=== PATIENT | male | born 1940 | race Caucasian/White ===

== ENCOUNTER 2016-12-18 15:25 | Emergency (ER) | payer MEDICARE, OTHER ==
[~2016-12-18 15:25] MED LIST: ALBU0.63 NEB; ASPI-482 PO; ATOR10TA PO; BUDE10.2 IH; BUDE10.22 IH; CHOL20002 PO; CLOP75TA PO; FERR-26 PO; SUCR1TAB29 PO; TIOT18CA IH; [UNRECOGNIZED DRUG - REMARK] PO
[2016-12-18 15:47] VITALS: BP 125/60
[2016-12-18] MEDS ORDERED: IPRATRPIUM/ALBUTEROL 0.5/2.5MG 3 ML NEBU. NEB ONE (16:00)
[2016-12-18 16:20] LABS: BASO # 0.1 x10^3/uL (0.0-0.2); BASO % 1 % (0-3); EOS % 2 % (0-3); HEMATOCRIT 42.4 % (39.0-53.0); HEMOGLOBIN 13.7 g/dL (13.0-17.5); LYMPH % 11 % (24-48); MEAN CORPUSCULAR HEMOGLOBIN 28 pg (25-35); MEAN CORPUSCULAR HGB CONC 32 g/dL (31-37); MEAN CORPUSCULAR VOLUME 85 fL (79-100); MONO % 8 % (0-9); NEUT % 78 % (31-73); PLATELET COUNT 233 x10^3/uL (140-400); RED BLOOD COUNT 4.97 x10^6/uL (4.30-5.70); RED CELL DISTRIBUTION WIDTH 15.2 % (11.5-14.5); WHITE BLOOD COUNT 9.5 x10^3/uL (4.0-11.0)
--- NOTE | 2016-12-18 16:20 | EKG ---
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
--- NOTE | 2016-12-18 16:21 | RAD ---
Indication shortness of breath. A single view of the chest was obtained. Comparison is made to an exam 8 days earlier. Heart size is unchanged. There are are likely persistent changes of mild congestive heart failure but in this regard the appearance is slightly improved. There is no consolidated pneumonia. Significant pleural fluid is not seen. There is no pneumothorax. IMPRESSION: Slight interval improvement. No new finding seen
--- NOTE | 2016-12-18 16:37 | PHYS DOC ---
Past Medical History Past Medical History: COPD, High Cholesterol Additional Past Medical Histor: emphysema, hypoglycemia Past Surgical History: Other Additional Past Surgical Histo: abd surgery for ulcer, lung surgery Alcohol Use: None Drug Use: None Adult General Chief Complaint Chief Complaint: SHORTNESS OF BREATH HPI HPI 76-year-old male presenting to the emergency department today with shortness of breath. He does have a history of COPD and has used his nebulizer today which mildly improved his symptoms. He was seen in the pulmonology clinic who referred him here for further evaluation workup and care. He reports being on 2 L nasal cannula at home. Onset 1 week. Worse with exertion. Intermittent. Review of systems is negative for chest pain abdominal pain nausea vomiting diaphoresis. All other review of systems is negative unless otherwise noted in history of present illness. Review of Systems Review of Systems SEE ABOVE. Current Medications Current Medications Current Medications Medications (Trade) Dose Ordered Sig/Mariola Start Time Stop Time Status Last Admin Dose Admin Albuterol/ Ipratropium (Duoneb) 3 ml 1X ONCE 12/18/16 16:00 12/18/16 16:01 DC 12/18/16 16:24 3 ML Prednisone (Prednisone) 50 mg 1X ONCE 12/18/16 17:00 12/18/16 17:01 Allergies Allergies Allergies Coded Allergies Type Severity Reaction Last Updated Verified aspirin Allergy Severe "it messes up by red blood cells" 07/04/15 Yes Physical Exam Physical Exam Constitutional: Well developed, well nourished, no acute distress, non-toxic appearance. HENT: Normocephalic, atraumatic, bilateral external ears normal, oropharynx moist, no oral exudates, nose normal. [] Eyes: PERRLA, EOMI, conjunctiva normal, no discharge. Neck: Normal range of motion, no tenderness, supple, no stridor. [] Cardiovascular:Heart rate regular rhythm, no murmur Lungs & Thorax: Bilateral breath sounds clear to auscultation [] Abdomen: Bowel sounds normal, soft, no tenderness, no masses, no pulsatile masses. Skin: Warm, dry, no erythema, no rash. [] Back: No tenderness, no CVA tenderness. [] Extremities: No tenderness, no cyanosis, no clubbing, ROM intact, no edema. Neurologic: Alert and oriented X 3, normal motor function, normal sensory function, no focal deficits noted. Psychologic: Affect normal, judgement normal, mood normal. [] Current Patient Data Vital Signs Vital Signs Date Time Temp Pulse Resp B/P Pulse Ox O2 Delivery O2 Flow Rate FiO2 12/18/16 16:25 95 Nasal Cannula 2.0 12/18/16 15:47 97.5 82 26 125/60 97.5 Lab Values Laboratory Tests Test 12/18/16 16:03 White Blood Count 9.5x10^3/uL (4.0-11.0) Red Blood Count 4.97x10^6/uL (4.30-5.70) Hemoglobin 13.7g/dL (13.0-17.5) Hematocrit 42.4% (39.0-53.0) Mean Corpuscular Volume 85fL (79-100) Mean Corpuscular Hemoglobin 28pg (25-35) Mean Corpuscular Hemoglobin Concent 32g/dL (31-37) Red Cell Distribution Width 15.2% (11.5-14.5) H Platelet Count 233x10^3/uL (140-400) Neutrophils (%) (Auto) 78% (31-73) H Lymphocytes (%) (Auto) 11% (24-48) L Monocytes (%) (Auto) 8% (0-9) Eosinophils (%) (Auto) 2% (0-3) Basophils (%) (Auto) 1% (0-3) Neutrophils # (Auto) 7.4x10^3uL (1.8-7.7) Lymphocytes # (Auto) 1.0x10^3/uL (1.0-4.8) Monocytes # (Auto) 0.8x10^3/uL (0.0-1.1) Eosinophils # (Auto) 0.2x10^3/uL (0.0-0.7) Basophils # (Auto) 0.1x10^3/uL (0.0-0.2) Sodium Level 138mmol/L (136-145) Potassium Level 4.6mmol/L (3.5-5.1) Chloride Level 103mmol/L (98-107) Carbon Dioxide Level 22mmol/L (21-32) Anion Gap 13 (6-14) Blood Urea Nitrogen 13mg/dL (8-26) Creatinine 1.0mg/dL (0.7-1.3) Estimated GFR (Cockcroft-Gault) 72.5 Glucose Level 100mg/dL (70-99) H Calcium Level 9.4mg/dL (8.5-10.1) Total Bilirubin 0.6mg/dL (0.2-1.0) Direct Bilirubin 0.1mg/dL (0.0-0.2) Aspartate Amino Transferase (AST) 23U/L (15-37) Alanine Aminotransferase (ALT) 18U/L (16-63) Alkaline Phosphatase 75U/L (46-116) Troponin I Quantitative < 0.017ng/mL (0.000-0.055) SQ-Vfl-W-Type Natriuretic Peptide 162pg/mL (0-449) Total Protein 7.6g/dL (6.4-8.2) Albumin 3.1g/dL (3.4-5.0) L Lipase 65U/L (73-393) L Laboratory Tests 12/18/16 16:03 Laboratory Tests 12/18/16 16:03 EKG EKG [] EKG compared to previous on December 12, 2016 is similar to previous. Sinus rhythm with a regular rate. Physician present. Negative modified Scarborosa criteria. Radiology/Procedures Radiology/Procedures [] Course & Med Decision Making Course & Med Decision Making Pertinent Labs and Imaging studies reviewed. (See chart for details) [] 76-year-old male presenting to the emergency department with shortness of breath. Vital signs showed the patient to be saturating well on his baseline oxygen requirement of 2 L. Otherwise afebrile. Mild wheezing on examination. The patient was given DuoNeb therapy in the emergency department along with prednisone and then on reexamination he had improved significantly. 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 Dragon Disclaimer Dragon Disclaimer This electronic medical record was generated, in whole or in part, using a voice recognition dictation system. Departure Departure Impression: Primary Impression: COPD exacerbation Disposition: HOME, SELF-CARE Condition: STABLE Referrals: FAWAD DICKENS MD (PCP) Patient Instructions: Chronic Obstructive Pulmonary Disease Exacerbation, Easy- to-Read Additional Instructions: Thank you for allowing us to participate in your care today. Followup with your primary care physician in 3 days if your symptoms do not improve. If you do not have a primary care provider you can ask for a list of our primary care providers. Return to the emergency department you have any new or concerning findings. This should be evaluated by the primary care physician and any necessary consulting services for continued management within a few days after discharge. Return to emergency room if you have any new or concerning symptoms including but not limited to fever, chills, nausea, vomiting, intractable pain, any new rashes, chest pain, shortness of air, uncontrolled bleeding, difficulty breathing, and/or vision loss. Scripts Prednisone 50 Mg [id number] Mg PO DAILY #5 TAB Prov:VINCE GOOD MD 12/18/16 VINCE GOOD MD Dec 18, 2016 16:37
[2016-12-18 16:39] LABS: CALCIUM 9.4 mg/dL (8.5-10.1); GFR 72.5; POTASSIUM 4.6 mmol/L (3.5-5.1)
[2016-12-18 16:45] LABS: ALBUMIN 3.1 g/dL (3.4-5.0); DIRECT BILIRUBIN 0.1 mg/dL (0.0-0.2); TOTAL BILIRUBIN 0.6 mg/dL (0.2-1.0); TOTAL PROTEIN 7.6 g/dL (6.4-8.2)
[2016-12-18] MEDS ORDERED: PRED50TA PO (16:59)
[2016-12-18] MEDS ORDERED: PREDNISONE 20 MG TABLET PO ONE (17:00)
== END 2016-12-18 17:12 | disposition home or self-care (01) ==
LOC: ER 15:25
DX: J44.1 Chronic obstructive pulmonary disease with (acute) exacerbation (principal); E78.00 Pure hypercholesterolemia, unspecified; J43.9 Emphysema, unspecified; Z88.6 Allergy status to analgesic agent
CPT/HCPCS: 36415; 71010; 80048; 80076; 83690; 83880; 84484; 85027; 93005; 94250; 94640; 99285; J7512; J7620

== ENCOUNTER 2017-06-20 20:02 | Emergency (ER) | payer MEDICARE, OTHER ==
[~2017-06-20] VITALS: Ht 180.3 cm; Wt 52.2 kg
[~2017-06-20 20:02] MED LIST changes: +CARV3.122 PO; +LISI-338 PO; +PRED-220 PO; +PRED50TA PO; +SIMV10TA3 PO; +SPIR25TA PO; -SUCR1TAB29 PO; +SUCR1TAB35 PO
[2017-06-20 20:34] LABS: BASO # 0.1 x10^3/uL (0.0-0.2); BASO % 1 % (0-3); EOS % 5 % (0-3); HEMATOCRIT 40.1 % (39.0-53.0); HEMOGLOBIN 13.2 g/dL (13.0-17.5); LYMPH # 1.5 x10^3/uL (1.0-4.8); LYMPH % 19 % (24-48); MEAN CORPUSCULAR HEMOGLOBIN 28 pg (25-35); MEAN CORPUSCULAR HGB CONC 33 g/dL (31-37); MEAN CORPUSCULAR VOLUME 85 fL (79-100); MONO % 9 % (0-9); NEUT % 67 % (31-73); PLATELET COUNT 166 x10^3/uL (140-400); RED BLOOD COUNT 4.71 x10^6/uL (4.30-5.70); RED CELL DISTRIBUTION WIDTH 17.1 % (11.5-14.5); WHITE BLOOD COUNT 7.7 x10^3/uL (4.0-11.0)
[2017-06-20] MEDS ORDERED: IPRATRPIUM/ALBUTEROL 0.5/2.5MG 3 ML NEBU. NEB ONE (21:00)
[2017-06-20 21:01] LABS: CALCIUM 9.3 mg/dL (8.5-10.1); CREATININE 0.9 mg/dL (0.7-1.3); GFR 81.6; POTASSIUM 3.7 mmol/L (3.5-5.1)
[2017-06-20 21:06] LABS: ALBUMIN 3.4 g/dL (3.4-5.0); TOTAL BILIRUBIN 0.4 mg/dL (0.2-1.0); TOTAL PROTEIN 6.7 g/dL (6.4-8.2)
--- NOTE | 2017-06-20 21:55 | PHYS DOC ---
Past Medical History Past Medical History: COPD, High Cholesterol Additional Past Medical Histor: emphysema, hypoglycemia, chronic home o2 Past Surgical History: Other Additional Past Surgical Histo: abd surgery for ulcer, lung surgery Alcohol Use: None Drug Use: None Adult General Chief Complaint Chief Complaint: CHEST PAIN HPI HPI Patient is a 77 year old with history of lung cancer, partial lobectomy, COPD, chronic intermittent pleuritic chest wall pain who with left-sided chest pain described as sharp and pleuritic 2 hours prior to ED arrival. Patient states he was short of breath secondary to pain. Denies nausea, sweats, fever or chills and increased cough. Patient denies leg pain, swelling history of DVT or PE. States he has frequent severe episodes of chest pain which are identical to his episode today.. Patient was admitted to this facility for the same in November 2016. He underwent extensive cardiac workup including a left heart catheterization which showed minimal to no obstructive coronary disease at that time. Patient arrives by EMS and is currently pain and symptom-free. [] Review of Systems Review of Systems Review of symptoms as per history of present illness. All other review symptoms are negative. Current Medications Current Medications Current Medications Medications (Trade) Dose Ordered Sig/Mariola Start Time Stop Time Status Last Admin Dose Admin Albuterol/ Ipratropium (Duoneb) 3 ml 1X ONCE 06/20/17 21:00 06/20/17 21:01 DC 06/20/17 21:12 3 ML Allergies Allergies Allergies Coded Allergies Type Severity Reaction Last Updated Verified aspirin Allergy Severe "it messes up by red blood cells" 07/04/15 Yes Physical Exam Physical Exam Constitutional: Well developed, well nourished, no acute distress, non-toxic appearance. [] HENT: Normocephalic, atraumatic, bilateral external ears normal, oropharynx moist, nose normal. [] Eyes: PERRLA, EOMI, conjunctiva normal, no discharge. [] Neck: Normal range of motion, no tenderness. [] Cardiovascular:Heart rate regular rhythm, no murmur [] Lungs & Thorax: Respirations nonlabored, diminished bilaterally.[] Abdomen: Bowel sounds normal, soft, no tenderness. [] Skin: Warm, dry, no erythema, no rash. [] Back: No tenderness, no CVA tenderness. [] Extremities: No tenderness, no cyanosis, no clubbing, ROM intact, no edema. [] Neurologic: Alert and oriented X 3, normal motor function, normal sensory function, no focal deficits noted. [] Psychologic: Affect normal, judgement normal, mood normal. [] Current Patient Data Vital Signs Vital Signs Date Time Temp Pulse Resp B/P (MAP) Pulse Ox O2 Delivery O2 Flow Rate FiO2 06/20/17 21:14 97 Nasal Cannula 3.0 06/20/17 20:10 98.1 85 28 161/73 (102) 98.1 Lab Values Laboratory Tests Test 06/20/17 20:20 06/20/17 20:29 White Blood Count 7.7 x10^3/uL (4.0-11.0) Red Blood Count 4.71 x10^6/uL (4.30-5.70) Hemoglobin 13.2 g/dL (13.0-17.5) Hematocrit 40.1 % (39.0-53.0) Mean Corpuscular Volume 85 fL (79-100) Mean Corpuscular Hemoglobin 28 pg (25-35) Mean Corpuscular Hemoglobin Concent 33 g/dL (31-37) Red Cell Distribution Width 17.1 % (11.5-14.5) H Platelet Count 166 x10^3/uL (140-400) Neutrophils (%) (Auto) 67 % (31-73) Lymphocytes (%) (Auto) 19 % (24-48) L Monocytes (%) (Auto) 9 % (0-9) Eosinophils (%) (Auto) 5 % (0-3) H Basophils (%) (Auto) 1 % (0-3) Neutrophils # (Auto) 5.2 x10^3uL (1.8-7.7) Lymphocytes # (Auto) 1.5 x10^3/uL (1.0-4.8) Monocytes # (Auto) 0.7 x10^3/uL (0.0-1.1) Eosinophils # (Auto) 0.4 x10^3/uL (0.0-0.7) Basophils # (Auto) 0.1 x10^3/uL (0.0-0.2) Sodium Level 141 mmol/L (136-145) Potassium Level 3.7 mmol/L (3.5-5.1) Chloride Level 105 mmol/L (98-107) Carbon Dioxide Level 24 mmol/L (21-32) Anion Gap 12 (6-14) Blood Urea Nitrogen 14 mg/dL (8-26) Creatinine 0.9 mg/dL (0.7-1.3) Estimated GFR (Cockcroft-Gault) 81.6 BUN/Creatinine Ratio 16 (6-20) Glucose Level 147 mg/dL (70-99) H Calcium Level 9.3 mg/dL (8.5-10.1) Total Bilirubin 0.4 mg/dL (0.2-1.0) Aspartate Amino Transferase (AST) 20 U/L (15-37) Alanine Aminotransferase (ALT) 23 U/L (16-63) Alkaline Phosphatase 78 U/L (46-116) Creatine Kinase 120 U/L (39-308) Total Protein 6.7 g/dL (6.4-8.2) Albumin 3.4 g/dL (3.4-5.0) Albumin/Globulin Ratio 1.0 (1.0-1.7) Laboratory Tests 06/20/17 20:20 Laboratory Tests 06/20/17 20:29 EKG EKG [EKG:] EKG: Sinus rhythm, rate 65, criteria for LVH with conduction delay with nonspecific ST-T wave changes. QTC 415. Radiology/Procedures Radiology/Procedures [Chest x-ray: No obvious discrete pulmonary infiltrate,. ] Course & Med Decision Making Course & Med Decision Making Pertinent Labs and Imaging studies reviewed. (See chart for details) [Patient asymptomatic in the ED. Lab work, imaging, EKG and most recent heart catheter dated 12/16 reviewed. Overall, patient's symptoms are consistent with chronic intermittent chest wall pain. Routine breathing treatment given. I'm comfortable with discharging the patient home with PCP follow-up for further management. Return precautions reviewed. Patient verbalizes understanding and agreement with discharge instructions prior to departure.] Dragon Disclaimer Dragon Disclaimer This electronic medical record was generated, in whole or in part, using a voice recognition dictation system. Departure Departure Impression: Primary Impression: Chest pain Disposition: 01 HOME, SELF-CARE Condition: GOOD Referrals: NO PCP (PCP) Patient Instructions: Pleurisy, [id number] Additional Instructions: Please follow-up with her primary care physician for further evaluation and management chest wall pain and COPD. Continue home medications upon discharge from the emergency department If you develop new or worsening in terms please return to the ED. DANIELLE RENE DO Jun 20, 2017 21:55
[2017-06-20 22:30] VITALS: BP 150/80
--- NOTE | 2017-06-21 10:40 | RAD ---
AP portable chest radiograph 06/20/2017 Clinical History: Shortness of breath since earlier today. An AP portable erect digital radiograph of the chest was obtained. Comparison study is dated 05/04/2017. Surgical clips overlie the mediastinum and upper/mid abdomen, unchanged. The cardiac silhouette is normal in size. Atherosclerotic calcification of the thoracic aorta is seen. The thoracic aorta is mildly tortuous. Emphysematous changes are seen involving both lungs. No acute pulmonary infiltrate is seen. No pleural effusion or pneumothorax is noted. The osseous structures are unchanged. Impression: No acute pulmonary infiltrate is seen.
--- NOTE | 2017-06-21 12:50 | EKG ---
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
== END 2017-06-20 22:30 | disposition home or self-care (01) ==
LOC: ER 20:02
DX: R07.81 Pleurodynia (principal); R06.02 Shortness of breath; J43.9 Emphysema, unspecified; E78.00 Pure hypercholesterolemia, unspecified; Z99.81 Dependence on supplemental oxygen; Z90.2 Acquired absence of lung [part of]; Z88.6 Allergy status to analgesic agent
CPT/HCPCS: 36415; 71010; 80053; 82550; 85025; 93005; 94640; 99285; J7620